=== PATIENT | male | born 1975 | race Caucasian/White ===

== ENCOUNTER → 2017-10-02 | Outpatient (CLI) | payer OTHER ==
--- NOTE | 2017-10-02 09:15 | DIAGNOSTIC IMAGING REPORT ---
CT SCAN OF THE LEFT WRIST WITHOUT IV CONTRAST CLINICAL HISTORY: Left wrist fracture. COMPARISON STUDY: No priors. TECHNIQUE: CT scan of the left wrist is performed from the distal radius and ulna to the distal metacarpals. Images are reviewed in the axial, sagittal, and coronal planes. IV contrast was not administered for this examination. 3-D reformats are created and assessed. Note that interpretation is suboptimal without plain film correlate. A dose lowering technique was utilized adhering to the principles of ALARA. CT DOSE: 177.59 mGy.cm FINDINGS: The examination is performed through a cast. The skeletal structures are well mineralized. There is a longitudinally oriented fracture through the distal radial metaphysis extending to the articular surface. Comminuted fracture with minimal depression extends through the radial styloid. There are tiny distracted fragments. The distal ulna appears intact. No carpal bone fracture is seen. The scapholunate articulation is normal. Mild overlying soft tissue edema is observed. The regional musculature is normal in appearance. IMPRESSION: 1. Distal radial fracture as above with intra-articular extension and small distracted fragments near the radial styloid. 2. No additional fracture is seen. Dictated: 10/02/2017 8:32 AM Transcribed: 10/02/2017 9:14 AM [facility] Electronically signed by: Saqib Monreal M.D. 10/02/2017 9:34 AM Dictated Date/Time: 10/02/2017 8:32 AM
== END | disposition home or self-care (01) ==
LOC: C.CTS 07:53
DX: S59.202A Unspecified physeal fracture of lower end of radius, left arm, initial encounter for closed fracture (principal); X58.XXXA Exposure to other specified factors, initial encounter